=== PATIENT | male | born 1995 | race Caucasian/White ===

== ENCOUNTER → 2020-11-08 | Outpatient (CLI) | payer BC | END | disposition home or self-care (01) | LOC: COVID19 15:20 | PROVIDERS: ATTEND Family Medicine | DX: Z20.828 Contact with and (suspected) exposure to other viral communicable diseases (principal) ==

== ENCOUNTER → 2020-11-17 | Outpatient (CLI) | payer BC | END | disposition home or self-care (01) | LOC: COVID19 15:32 | PROVIDERS: ATTEND Family Medicine | DX: Z20.828 Contact with and (suspected) exposure to other viral communicable diseases (principal) ==

== ENCOUNTER 2023-02-09 23:36 | Emergency (ER) | payer SELFPAY ==
[~2023-02-09] VITALS: Ht 190.5 cm; Wt 93.0 kg
[2023-02-10] MEDS ORDERED: CLARITIN10 MG PO (00:17)
== END 2023-02-10 00:21 | disposition home or self-care (01) ==
LOC: ED 23:36
DX: N50.812 Left testicular pain (principal)